=== PATIENT | male | born 1990 | race Hispanic/Latino ===

== ENCOUNTER 2024-04-20 13:06 | Outpatient (CLI) | payer BC | END 2024-04-20 13:07 | disposition home or self-care (01) | PROVIDERS: ATTEND Family Medicine | DX: R55 Syncope and collapse (principal) | CPT/HCPCS: 93225; 93226 ==

== ENCOUNTER 2024-04-22 14:09 | Outpatient (CLI) | payer BC | END 2024-04-22 14:10 | disposition home or self-care (01) | LOC: ULT 14:09 | PROVIDERS: ATTEND Family Medicine | DX: R55 Syncope and collapse (principal); I51.7 Cardiomegaly | CPT/HCPCS: 93306 ==